=== PATIENT | female | born 1930 | race Caucasian/White ===

== ENCOUNTER 2017-04-16 10:20 | Emergency (ER) | payer MEDICARE, OTHER ==
[~2017-04-16] VITALS: Ht 160 cm; Wt 54.0 kg
[~2017-04-16 10:20] MED LIST: ACET500T3 PO; ALEV220T14 PO; ATEN100T PO; LISI-586 PO; SIMV40TA PO
[2017-04-16 10:43] VITALS: BP 136/62; PULSE 61; RESP 16; TEMP 97.6; O2SAT 98
[2017-04-16] MEDS ORDERED: DEXAMETHASONE SOD PHOS 4 MG/ML VIAL IM ONE (11:15)
[2017-04-16] MEDS ORDERED: HYDR-3516 PO (11:18)
--- NOTE | 2017-04-16 11:18 | PD ---
HPI Chief Complaint: Pain: Acute or Chronic Time Seen by Provider: 11:04 Travel History International Travel<30 days: No Contact w/Intl Traveler<30days: No Traveled to known affect area: No History of Present Illness HPI 86-year-old female with history of hypertension, hypercholesterolemia, back pain /lumbar radiculopathy with L4 laminectomy about 10 years ago, here for evaluation of right lower back pain radiating down her buttocks and posterior right leg. Symptoms have been going on for a week or so, worsening today, gradual onset. Patient reports symptoms are severe, constant, worse with movements and ambulation. She denies trauma. No motor deficits or weakness. No urinary or bowel incontinence or retention. No fevers. She is requesting an injection as she has had them in the past. PFS Past Medical History High Cholesterol: Yes Diminished Hearing: No Hypertension: Yes Immunizations Current: Yes Tetanus Vaccination: < 5 Years Influenza Vaccination: Yes ?: Not Menopausal: Yes : 4 Para: 4 Past Surgical History Abdominal Surgery: Yes (rectal surgery) Other Surgery: Yes (nerve stimulator lower back, L4 fusion) Social History Alcohol Use: Yes (5 nights a week, one drink ) Tobacco Use: No Substance Use: No Allergies-Medications (Allergen,Severity, Reaction): Coded Allergies: Sulfa (Sulfonamide Antibiotics) (Unverified Allergy, Intermediate, hives, 04/16/17) Reported Meds & Prescriptions Reported Meds & Active Scripts Active Reported Atenolol 100 Mg Tab 100 Mg PO DAILY Review of Systems Except as stated in HPI: all other systems reviewed are Neg Physical Exam Narrative GENERAL: Well-developed, well-nourished, comfortable, no apparent distress. SKIN: Focused skin assessment warm/dry. No rash. HEAD: Atraumatic. Normocephalic. EYES: Pupils equal and round. No scleral icterus. No injection or drainage. ENT: Mucous membranes pink and moist. CARDIOVASCULAR: Regular rate and rhythm. Bilateral dorsalis pedis pulses are brisk and equal. RESPIRATORY: No accessory muscle use. MUSCULOSKELETAL: No midline vertebral step-off or tenderness. There is mild right SI joint tenderness. Normal range of motion in flexion and extension and normal muscle strength in bilateral lower extremities. NEUROLOGICAL: Awake and alert. No obvious cranial nerve deficits. Motor grossly within normal limits. Normal speech. Normal motor/sensory in bilateral lower extremities. Great toe extension present bilaterally. No saddle anesthesia. PSYCHIATRIC: Appropriate mood and affect; insight and judgment normal. Data Data Last Documented VS Vital Signs Date Time Temp Pulse Resp B/P (MAP) Pulse Ox O2 Delivery O2 Flow Rate FiO2 04/16/17 10:43 97.6 61 16 136/62 (86) 98 Orders Orders Dexamethasone Inj (Decadron Inj) (04/16/17 11:15) MDM Medical Decision Making Medical Screen Exam Complete: Yes Emergency Medical Condition: Yes Differential Diagnosis Sciatica, conus medullaris syndrome/cauda equina syndrome unlikely Narrative Course Vital signs reviewed and are within normal limits. This is an 86-year-old female with history of lumbar radiculopathy is presenting with right lower back pain radiating down her posterior right leg. Her signs and symptoms are consistent with sciatica. There are no motor deficits or weakness. No anesthesia or saddle anesthesia. She denies urinary or bowel incontinence or retention. No signs or symptoms to suggest cord compression. I explained to her that we do not do direct injections or epidural injections in the emergency department. I will give her an IM injection of Decadron. She states she has one hydrocodone left over at home from a prescription filled about a year ago. I will give her a prescription for hydrocodone as well. She was advised to follow-up with her primary care physician or with the physician who provided direct injections this week. She was informed on when to return to the emergency department. She verbalizes understanding and agreement with plan. Diagnosis Primary Impression: Low back pain Qualified Codes: M54.41 - Lumbago with sciatica, right side Referrals: Primary Care Physician 3 days Additional Instructions: Follow-up with your primary care physician this week. Do not drink alcohol, drive, or operate heavy machinery while taking hydrocodone. Return to the emergency department for worsening symptoms or any other concerns. Scripts Hydrocodone-Acetaminophen (Hydrocodone-Acetaminophen) 5-325 mg Tab 1 TAB PO Q6H Y for PAIN, #12 TAB 0 Refills Prov: Unruly Sanchez MD 04/16/17 Disposition: 01 DISCHARGE HOME Condition: Stable Unruly Sanchez MD Apr 16, 2017 11:18
== END 2017-04-16 11:39 | disposition home or self-care (01) ==
LOC: PHED 10:20 → PHEFT 11:39
DX: M54.41 Lumbago with sciatica, right side (principal); E78.00 Pure hypercholesterolemia, unspecified; I10 Essential (primary) hypertension; Z79.899 Other long term (current) drug therapy; Z88.2 Allergy status to sulfonamides
CPT/HCPCS: 96372; 99284; J1100

== ENCOUNTER 2017-04-21 13:25 | Emergency (ER) | payer MEDICARE, OTHER ==
[~2017-04-21] VITALS: Ht 154.9 cm; Wt 54.2 kg
[~2017-04-21 13:25] MED LIST changes: -ACET500T3 PO; -ALEV220T14 PO; +HYDR-3516 PO; -LISI-586 PO; -SIMV40TA PO
[2017-04-21 13:27] VITALS: BP 173/76; PULSE 58; RESP 18; TEMP 97.4; O2SAT 99
--- NOTE | 2017-04-21 14:02 | PD ---
HPI Chief Complaint: Musculoskeletal Complaint Time Seen by Provider: 13:55 Travel History International Travel<30 days: No Contact w/Intl Traveler<30days: No Traveled to known affect area: No History of Present Illness HPI 86-year-old female with history of low back pain and sciatica here with continued low back pain. She was seen on 04/16/17 and given a shot of Decadron discharged home with [place]. She reports his medications improved symptoms but she ran out of pills. Due to the holiday she was unable to schedule a follow- up appointment with pain management. She was previously seen by Dr. Tovar in July 2016 and received a spinal injection which resolved her sciatic pain. She plans to follow-up with him as possible. She denies fever, chills, incontinence, saddle anesthesia, paresthesia or weakness in extremities. She reports this pain is similar to her previous sciatic pain. Of note the woman resides in [place] where her primary care doctor is and only lyon here in [place]. Making follow-up difficult for her. PFSH Past Medical History High Cholesterol: Yes Diminished Hearing: No Hypertension: Yes Immunizations Current: Yes Tetanus Vaccination: > 5 Years Influenza Vaccination: Yes ?: Not Menopausal: Yes : 4 Para: 4 Past Surgical History Abdominal Surgery: Yes (rectal surgery) Other Surgery: Yes (nerve stimulator lower back, L4 fusion) Social History Alcohol Use: Yes (5 nights a week, one drink ) Tobacco Use: No Substance Use: No Allergies-Medications (Allergen,Severity, Reaction): Coded Allergies: Sulfa (Sulfonamide Antibiotics) (Unverified Allergy, Intermediate, hives, 04/21/17) Reported Meds & Prescriptions Reported Meds & Active Scripts Active Hydrocodone-Acetaminophen 5-325 mg Tab 1 Tab PO Q6H PRN Reported Atenolol 100 Mg Tab 100 Mg PO DAILY Review of Systems Except as stated in HPI: all other systems reviewed are Neg General / Constitutional: No: Fever Eyes: No: Visual changes HENT: No: Headaches Cardiovascular: No: Chest Pain or Discomfort Respiratory: No: Shortness of Breath Gastrointestinal: No: Abdominal Pain Genitourinary: No: Dysuria Physical Exam Narrative GENERAL: Alert, well-developed and well-appearing 86-year-old female SKIN: Warm and dry. HEAD: Normocephalic. EYES: No injection or drainage. NECK: Supple, trachea midline. CARDIOVASCULAR: Regular rate and rhythm without murmurs, gallops, or rubs. RESPIRATORY: Breath sounds equal bilaterally. No accessory muscle use. GASTROINTESTINAL: Abdomen soft, non-tender, nondistended. MUSCULOSKELETAL: No cyanosis, or edema. BACK: Tenderness to the right buttocks over the sacroiliac joint. Without obvious deformity. No CVA tenderness. NEUROLOGICAL: Awake and alert. Normal strength and sensation in the lower extremities. Patient is able to dorsiflex and plantar bilaterally. Data Data Last Documented VS Vital Signs Date Time Temp Pulse Resp B/P (MAP) Pulse Ox O2 Delivery O2 Flow Rate FiO2 04/21/17 13:27 97.4 58 18 173/76 (108) 99 MDM Medical Decision Making Medical Screen Exam Complete: Yes Emergency Medical Condition: Yes Differential Diagnosis Sciatica, acute on chronic low back pain, lumbago Narrative Course 86-year-old female with a history of sciatica. She has no signs of cord compression. She has a normal neurologic exam. She was unable to follow up with pain management due to the holiday. Her sciatic pain has been managed in the past with spinal injections. She will be given another prescription for [place] and instructed to make an appointment with Dr. Tovar. Diagnosis Primary Impression: Sciatica Qualified Codes: M54.31 - Sciatica, right side Referrals: Boaz Tovar MD Additional Instructions: may take [id number] ibuprofen or Aleve. Make an appointment for follow-up with Dr. Tovar. Disposition: 01 DISCHARGE HOME Condition: Stable Traci Aguayo Adrian CARBALLO Apr 21, 2017 14:02
[2017-04-21] MEDS ORDERED: HYDR-3516 PO (14:03)
[2017-04-21] MEDS ORDERED: KETOROLAC TROMETHAMINE 60 MG/2 ML (IM) VIAL IM ONE (14:15)
== END 2017-04-21 14:20 | disposition home or self-care (01) ==
LOC: PHEFT 13:25
DX: M54.31 Sciatica, right side (principal); E78.00 Pure hypercholesterolemia, unspecified; I10 Essential (primary) hypertension
CPT/HCPCS: 96372; 99284; J1885

== ENCOUNTER 2017-07-20 07:48 | Emergency (ER) | payer MEDICARE, OTHER ==
[~2017-07-20] VITALS: Ht 154.9 cm; Wt 53.4 kg
[~2017-07-20 07:48] MED LIST changes: +ALEV220T14 PO; -HYDR-3516 PO; +LISI10TA PO; +TRAM50TA PO
[2017-07-20 07:52] VITALS: BP 159/75; PULSE 71; RESP 16; TEMP 98.4; O2SAT 95
[2017-07-20] MEDS ORDERED: HYDR-3516 PO (08:04)
[2017-07-20] MEDS ORDERED: ZOCO40TA PO (08:04)
[2017-07-20] MEDS ORDERED: ONDANSETRON HCL 4 MG/2 ML VIAL IM ONE (08:30)
[2017-07-20] MEDS ORDERED: HYDROmorphone HCL PF 2 MG/ML VIAL IM ONE (08:30)
--- NOTE | 2017-07-20 08:30 | PD ---
HPI Chief Complaint: Musculoskeletal Complaint Time Seen by Provider: 08:05 Travel History International Travel<30 days: No Contact w/Intl Traveler<30days: No Traveled to known affect area: No History of Present Illness HPI This 86-year-old female is complaining of back pain. She is having pain from her back going down to her right hip and down her right leg. She has had this pain for some time. She gets periodic epidural injections. She had one done a week ago but says it did not seem to provide any relief. She has a history of a lumbar fusion in 2005. She has prescription for Lortab 5/325 and she has been taking 1-2 per day. She is also been taking some Aleve. The pain is aggravated by movement. She has trouble bearing weight due to the pain PFSH Past Medical History High Cholesterol: Yes Diminished Hearing: No Hypertension: Yes Immunizations Current: Yes ?: Not Menopausal: Yes : 4 Para: 4 Past Surgical History Abdominal Surgery: Yes (rectal surgery) Other Surgery: Yes (nerve stimulator lower back, L4 fusion) Social History Alcohol Use: Yes (5 nights a week, one drink ) Tobacco Use: No Substance Use: No Allergies-Medications (Allergen,Severity, Reaction): Coded Allergies: Sulfa (Sulfonamide Antibiotics) (Unverified Allergy, Intermediate, hives, 07/20/17) Reported Meds & Prescriptions Reported Meds & Active Scripts Active [place] (Hydrocodone-Acetaminophen) 5 Mg-325 Mg Tab 1-2 Tab PO Q4H PRN Reported Hydrocodone-Acetaminophen 5-325 mg Tab 1 Tab PO Q4H PRN Zocor (Simvastatin) 40 Mg Tab 40 Mg PO DAILY Lisinopril-Hctz 10-12.5 Mg Tab 1 Tab PO DAILY Atenolol 100 Mg Tab 100 Mg PO DAILY Review of Systems General / Constitutional: No: Fever, Chills Eyes: No: Diploplia HENT: No: Headaches Cardiovascular: No: Chest Pain or Discomfort, Palpitations Respiratory: No: Cough, Shortness of Breath Gastrointestinal: No: Vomiting, Diarrhea Genitourinary: No: Frequency Musculoskeletal: Positive: Pain Hematologic/Lymphatic: No: Easy Bruising Physical Exam Narrative GENERAL: Well-developed female SKIN: Focused skin assessment warm/dry. HEAD: Atraumatic. Normocephalic. EYES: Pupils equal and round. No scleral icterus. No injection or drainage. ENT: No nasal bleeding or discharge. Mucous membranes pink and moist. NECK: Trachea midline. No JVD. MUSCULOSKELETAL: No obvious deformities. No clubbing. No cyanosis. No edema. Tenderness in the right sacroiliac area. Straight leg raising is painful. Sensation of the leg appears intact. She has good strength in plantar dorsiflexion of the foot. Extension of the knee causes pain NEUROLOGICAL: Awake and alert. No obvious cranial nerve deficits. Motor grossly within normal limits. Normal speech. PSYCHIATRIC: Appropriate mood and affect; insight and judgment normal. Data Data Last Documented VS Vital Signs Date Time Temp Pulse Resp B/P (MAP) Pulse Ox O2 Delivery O2 Flow Rate FiO2 07/20/17 07:52 98.4 71 16 159/75 (103) 95 Orders Orders Hydromorphone Pf Inj (Dilaudid Pf Inj) (07/20/17 08:30) Ondansetron Inj (Zofran Inj) (07/20/17 08:30) Ed Discharge Order (07/20/17 09:08) MDM Medical Decision Making Medical Screen Exam Complete: Yes Emergency Medical Condition: Yes Medical Record Reviewed: Yes Differential Diagnosis Differential includes lumbar radiculopathy HNP, exacerbation of chronic pain Narrative Course I was able to contact Dr. Tovar who recommends the patient call for further follow-up. I will provide some [place] Diagnosis Primary Impression: Lumbar radiculopathy Referrals: Boaz Tovar MD Scripts Hydrocodone-Acetaminophen ([place]) 5 Mg-325 Mg Tab 1-2 TAB PO Q4H Y for PAIN, #20 TAB 0 Refills Prov: Jeferson Zuniga MD 07/20/17 Disposition: 01 DISCHARGE HOME Condition: Stable Jeferson uZniga MD Jul 20, 2017 08:30
[2017-07-20] MEDS ORDERED: NORC5TAB PO (08:37)
== END 2017-07-20 09:29 | disposition home or self-care (01) ==
LOC: PHED 07:48
DX: M54.16 Radiculopathy, lumbar region (principal); E78.00 Pure hypercholesterolemia, unspecified; I10 Essential (primary) hypertension
CPT/HCPCS: 96372; 99283; J1170; J2405

== ENCOUNTER 2017-07-21 08:47 | Emergency (ER) | payer MEDICARE, OTHER ==
[~2017-07-21] VITALS: Ht 154.9 cm; Wt 78.0 kg
[~2017-07-21 08:47] MED LIST changes: +HYDR-3516 PO; +NORC5TAB PO; +ZOCO40TA PO
[2017-07-21 08:55] VITALS: BP 178/78; PULSE 71; RESP 16; TEMP 99; O2SAT 97
[2017-07-21] MEDS ORDERED: ONDANSETRON HCL 4 MG/2 ML VIAL IM ONE (12:30)
[2017-07-21] MEDS ORDERED: HYDROmorphone HCL PF 1 MG/ML VIAL IM ONE (12:30)
[2017-07-21] MEDS ORDERED: HYDROmorphone HCL PF 2 MG/ML VIAL IM ONE (12:45)
--- NOTE | 2017-07-21 12:55 | PD ---
HPI Chief Complaint: Musculoskeletal Complaint Time Seen by Provider: 12:07 Travel History International Travel<30 days: No Contact w/Intl Traveler<30days: No Traveled to known affect area: No History of Present Illness HPI This patient complains of right low back pain radiating to her right buttock and down the back of her leg. She has had sciatica for many many years. She gets epidural steroid injections from her pain management physician. She had one recently but it did not help. She was seen here yesterday in the ER and received a Dilaudid injection which gave her temporary relief. She came back today because she is still hurting. She has an appointment on Monday with Dr. Tovar. No acute injury. No neurologic change. Symptom severity is moderate. Worse with movement. PFSH Past Medical History High Cholesterol: Yes Diminished Hearing: No Hypertension: Yes Immunizations Current: Yes Influenza Vaccination: Yes ?: Not Menopausal: Yes : 4 Para: 4 Past Surgical History Abdominal Surgery: Yes (rectal surgery) Hysterectomy: Yes Other Surgery: Yes (nerve stimulator lower back, L4 fusion) Social History Alcohol Use: Yes (5 nights a week, one drink ) Tobacco Use: No Substance Use: No Allergies-Medications (Allergen,Severity, Reaction): Coded Allergies: Sulfa (Sulfonamide Antibiotics) (Unverified Allergy, Intermediate, hives, 07/20/17) Reported Meds & Prescriptions Reported Meds & Active Scripts Active [place] (Hydrocodone-Acetaminophen) 5 Mg-325 Mg Tab 1-2 Tab PO Q4H PRN Reported Zocor (Simvastatin) 40 Mg Tab 40 Mg PO DAILY Lisinopril-Hctz 10-12.5 Mg Tab 1 Tab PO DAILY Atenolol 100 Mg Tab 100 Mg PO DAILY Review of Systems General / Constitutional: No: Fever Eyes: No: Visual changes HENT: No: Headaches Cardiovascular: No: Chest Pain or Discomfort Respiratory: No: Shortness of Breath Gastrointestinal: No: Abdominal Pain Genitourinary: No: Dysuria Musculoskeletal: Positive: Arthralgias, Limited ROM, Pain Skin: No Rash Neurologic: No: Weakness Psychiatric: No: Depression Endocrine: No: Polydipsia Hematologic/Lymphatic: No: Easy Bruising Physical Exam Narrative GENERAL: Well-nourished, well-developed patient with right low back pain . SKIN: Focused skin assessment reveals no rash and nodules. Skin is Warm and dry. HEAD: Atraumatic. Normocephalic. EYES: Pupils equal and round. No scleral icterus. No injection or drainage. ENT: No nasal bleeding or discharge. Mucous membranes pink and moist. NECK: Trachea midline. No JVD. CARDIOVASCULAR: Regular rate and rhythm. No murmur appreciated. RESPIRATORY: No accessory muscle use. Clear to auscultation. Breath sounds equal bilaterally. GASTROINTESTINAL: Abdomen soft, non-tender, nondistended. Hepatic and splenic margins not palpable. MUSCULOSKELETAL: No obvious deformities. No clubbing. No cyanosis. No edema. Back exam reveals no midline tenderness. Positive straight leg raise NEUROLOGICAL: Awake and alert. No obvious cranial nerve deficits. Motor grossly within normal limits. Normal speech. PSYCHIATRIC: Appropriate mood and affect; insight and judgment normal. Data Data Last Documented VS Vital Signs Date Time Temp Pulse Resp B/P (MAP) Pulse Ox O2 Delivery O2 Flow Rate FiO2 07/21/17 08:55 99.0 71 16 178/78 (111) 97 Orders Orders Ondansetron Inj (Zofran Inj) (07/21/17 12:30) Hydromorphone Pf Inj (Dilaudid Pf Inj) (07/21/17 12:30) Hydromorphone Pf Inj (Dilaudid Pf Inj) (07/21/17 12:45) [facility] Medical Decision Making Medical Screen Exam Complete: Yes Emergency Medical Condition: Yes Medical Record Reviewed: Yes Differential Diagnosis Sciatica, compression fracture, disc herniation, lumbar strain Narrative Course I have reviewed the patient's electronic medical record. I reviewed her visit from yester morning I gave her injection of Dilaudid and Zofran for symptom relief Patient got some relief with that She has an appointment with her pain management physician Monday Diagnosis Primary Impression: Chronic sciatica of right side Patient Instructions: General Instructions Departure Forms: Tests/Procedures Additional Instructions: The patient was advised to follow up with their physician and return if they worsen. Med/Other Pt SpecificInfo: Other Disposition: 01 DISCHARGE HOME Condition: Stable Hudson Hopson MD Jul 21, 2017 12:55
== END 2017-07-21 13:55 | disposition home or self-care (01) ==
LOC: PHED 08:47
DX: M54.31 Sciatica, right side (principal); E78.00 Pure hypercholesterolemia, unspecified; I10 Essential (primary) hypertension; Z79.899 Other long term (current) drug therapy; Z88.2 Allergy status to sulfonamides
CPT/HCPCS: 96372; 99283; J1170; J2405

== ENCOUNTER 2017-07-22 04:53 | Observation (INO) | payer MEDICARE, OTHER ==
[2017-07-22] VITALS (9 sets, daily range): BP systolic 118–190; BP diastolic 56–94; PULSE 65–91; RESP 16–18; TEMP 97–98.6; O2SAT 95–98
[~2017-07-22] VITALS: Ht 154.9 cm; Wt 51.3 kg
[~2017-07-22 04:53] MED LIST changes: -ALEV220T14 PO; -HYDR-3516 PO; -TRAM50TA PO
[2017-07-22] MEDS ORDERED: ONDANSETRON HCL 4 MG/2 ML VIAL IV PUSH ONE (05:15)
[2017-07-22] MEDS ORDERED: HYDROmorphone HCL PF 1 MG/ML VIAL IV PUSH ONE (05:15)
[2017-07-22] MEDS ORDERED: KETOROLAC TROMETHAMINE 30 MG/ML (IVP) VIAL IV PUSH ONE (05:15)
[2017-07-22 05:30] LABS: AUTOMATED NEUTROPHIL # 5.3 TH/MM3 (1.8-7.7); BASOPHIL # 0.1 TH/MM3 (0-0.2); BASOPHIL % 0.7 % (0.0-2.0); EOSINOPHIL % 0.6 % (0.0-4.0); HEMATOCRIT 36.5 % (35.0-46.0); HEMOGLOBIN 11.7 GM/DL (11.6-15.3); LYMPH % 13.8 % (9.0-44.0); MEAN CELL VOLUME 90.3 FL (80.0-100.0); MEAN CORPUSCULAR HEMOGLOBIN 28.9 PG (27.0-34.0); MEAN PLATELET VOLUME 7.4 FL (7.0-11.0); MONO % 9.3 % (0.0-8.0); MONOCYTE # 0.7 TH/MM3 (0-0.9); NEUT % 75.6 % (16.0-70.0); PLATELET COUNT 195 TH/MM3 (150-450); RED BLOOD COUNT 4.04 MIL/MM3 (4.00-5.30); RED CELL DISTRIBUTION WIDTH 14.5 % (11.6-17.2); WHITE BLOOD COUNT 7.2 TH/MM3 (4.0-11.0)
[2017-07-22] MEDS ORDERED: HYDROmorphone HCL PF 2 MG/ML VIAL IV PUSH ONE (05:30)
[2017-07-22 05:37] LABS: CHLORIDE 103 MEQ/L (98-107); SODIUM (NA) 137 MEQ/L (136-145)
[2017-07-22 05:40] LABS: CALCIUM 8.5 MG/DL (8.5-10.1)
[2017-07-22 05:41] LABS: ALBUMIN 3.5 GM/DL (3.4-5.0); BICARBONATE 26.7 MEQ/L (21.0-32.0); BLOOD UREA NITROGEN 18 MG/DL (7-18); GLUCOSE,RANDOM 109 MG/DL (74-106)
[2017-07-22 05:44] LABS: ALT (GPT) 17 U/L (10-53); AST (GOT) 14 U/L (15-37); CREATININE 0.63 MG/DL (0.50-1.00); GLOMERULAR FILTRATION RATE 90 ML/MIN (>89)
[2017-07-22 05:46] LABS: TOTAL BILIRUBIN ADULT 0.7 MG/DL (0.2-1.0); TOTAL PROTEIN 6.6 GM/DL (6.4-8.2)
[2017-07-22 05:47] LABS: ALKALINE PHOSPHATASE 44 U/L (45-117)
--- NOTE | 2017-07-22 05:59 | PD ---
HPI Chief Complaint: Pain: Acute or Chronic Time Seen by Provider: 05:08 Travel History International Travel<30 days: No Contact w/Intl Traveler<30days: No Traveled to known affect area: No History of Present Illness HPI Is an 86-year-old woman who presents to the emergency department with persistent unrelenting back and sciatica pain. She is a history of chronic problems. She had a fusion done in 2006 over L4 and adjacent level. She has had intermittent trouble since then. She received epidural shots in the past. She typically has mild to moderate problems that are self-limited. She states been having worsening problems over the past couple weeks that are much more severe than she has had in the past. Over the past 48-72 hours symptoms are gotten excruciating. She has been in the ER twice already received IM injections of Dilaudid. She states they work for short period time she gets home and is incapacitated due to pain and is not able to walk. She has an appointment with Dr. Tovar coming up in several days, but states that the pain is excruciating and she is not able to move around at all at home. She does presents back to the emergency department via EMS for her third visit. History Past Medical History Narrative Medical Hypertension History of L4 fusion Hyperlipidemia Tetanus Vaccination: < 5 Years Influenza Vaccination: Yes Menopausal: Yes : 4 Para: 4 Social History Alcohol Use: Yes (5 nights a week, one drink ) Tobacco Use: No (QUIT AGE 47: SMOKED SOCIALLY ONLY) Allergies-Medications (Allergen,Severity, Reaction): Coded Allergies: Sulfa (Sulfonamide Antibiotics) (Unverified Allergy, Intermediate, hives, 07/22/17) Reported Meds & Prescriptions Reported Meds & Active Scripts Active [place] (Hydrocodone-Acetaminophen) 5 Mg-325 Mg Tab 1-2 Tab PO Q4H PRN Reported Zocor (Simvastatin) 40 Mg Tab 40 Mg PO HS Lisinopril-Hctz 10-12.5 Mg Tab 1 Tab PO DAILY Atenolol 100 Mg Tab 100 Mg PO HS Review of Systems Except as stated in HPI: all other systems reviewed are Neg Physical Exam Narrative GENERAL: 86-year-old woman, tense, uncomfortable appearing. SKIN: Focused skin assessment warm/dry. HEAD: Atraumatic. Normocephalic. EYES: Pupils equal and round. No scleral icterus. No injection or drainage. ENT: No nasal bleeding or discharge. Mucous membranes pink and moist. NECK: Trachea midline. No JVD. CARDIOVASCULAR: Regular rate and rhythm. No murmur appreciated. RESPIRATORY: No accessory muscle use. Clear to auscultation. Breath sounds equal bilaterally. GASTROINTESTINAL: Abdomen soft, non-tender, nondistended. Hepatic and splenic margins not palpable. MUSCULOSKELETAL: No obvious deformities. No edema. No edema. NEURO: Strength full and equal in the lower extremities. Pain with movement in certain dimensions in the right lower extremity but no obvious weakness. Sensations intact to light touch and equal bilaterally. PSYCHIATRIC: Appropriate mood and affect; insight and judgment normal. Data Data Last Documented VS Vital Signs Date Time Temp Pulse Resp B/P (MAP) Pulse Ox O2 Delivery O2 Flow Rate FiO2 07/22/17 05:41 Nasal Cannula 2.00 07/22/17 05:30 74 161/68 (99) 97 07/22/17 04:53 98.6 18 Orders Orders Complete Blood Count With Diff (07/22/17 05:08) Comprehensive Metabolic Panel (07/22/17 05:08) Iv Access Insert/Monitor (07/22/17 05:08) Hydromorphone Pf Inj (Dilaudid Pf Inj) (07/22/17 05:15) Ketorolac Inj (Toradol Inj) (07/22/17 05:15) Ondansetron Inj (Zofran Inj) (07/22/17 05:15) Hydromorphone Pf Inj (Dilaudid Pf Inj) (07/22/17 05:30) Place In Observation (07/22/17 ) Vital Signs (Adult) Q4H (07/22/17 06:05) Activity Oob With Assistance (07/22/17 06:05) Diet Regular Basic (07/22/17 Breakfast) Sodium Chloride 0.9% Flush (Ns Flush) (07/22/17 06:15) Sodium Chloride 0.9% Flush (Ns Flush) (07/22/17 09:00) Ondansetron Inj (Zofran Inj) (07/22/17 06:15) Comprehensive Metabolic Panel (07/23/17 06:00) Complete Blood Count With Diff (07/23/17 06:00) Pt Request For Service (07/22/17 06:05) Case Management Consult (07/22/17 06:05) Scd Bilateral/Knee High ANTHONY.BID (07/22/17 06:05) [place] Bilateral/Knee High ANTHONY.QSHIFT (07/22/17 06:08) Acetamin-Hydrocod 325-5 Mg ([place] 5-325 (07/22/17 06:15) Morphine Inj (Morphine Inj) (07/22/17 06:15) Docusate Sodium-Senna (Courtney-Colace) (07/22/17 09:00) Magnesium Hydroxide Liq (Milk Of Magnesi (07/22/17 06:15) Sennosides (Senokot) (07/22/17 06:15) Bisacodyl Supp (Dulcolax Supp) (07/22/17 06:15) Lactulose Liq (Lactulose Liq) (07/22/17 06:15) Methylprednisolone So Succ Inj (Solumedr (07/22/17 06:15) Diazepam (Valium) (07/22/17 06:15) Diazepam (Valium) (07/22/17 10:00) Atenolol (Tenormin) (07/22/17 21:00) (Nf) Simvastatin (Zocor) (07/22/17 21:00) Admit Order (Ed Use Only) (07/22/17 ) Labs Laboratory Tests Test 07/22/17 05:20 White Blood Count 7.2 TH/MM3 Red Blood Count 4.04 MIL/MM3 Hemoglobin 11.7 GM/DL Hematocrit 36.5 % Mean Corpuscular Volume 90.3 FL Mean Corpuscular Hemoglobin 28.9 PG Mean Corpuscular Hemoglobin Concent 32.0 % Red Cell Distribution Width 14.5 % Platelet Count 195 TH/MM3 Mean Platelet Volume 7.4 FL Neutrophils (%) (Auto) 75.6 % Lymphocytes (%) (Auto) 13.8 % Monocytes (%) (Auto) 9.3 % Eosinophils (%) (Auto) 0.6 % Basophils (%) (Auto) 0.7 % Neutrophils # (Auto) 5.3 TH/MM3 Lymphocytes # (Auto) 1.0 TH/MM3 Monocytes # (Auto) 0.7 TH/MM3 Eosinophils # (Auto) 0.0 TH/MM3 Basophils # (Auto) 0.1 TH/MM3 CBC Comment DIFF FINAL Differential Comment Blood Urea Nitrogen 18 MG/DL Creatinine 0.63 MG/DL Random Glucose 109 MG/DL Total Protein 6.6 GM/DL Albumin 3.5 GM/DL Calcium Level 8.5 MG/DL Alkaline Phosphatase 44 U/L Aspartate Amino Transf (AST/SGOT) 14 U/L Alanine Aminotransferase (ALT/SGPT) 17 U/L Total Bilirubin 0.7 MG/DL Sodium Level 137 MEQ/L Potassium Level 3.7 MEQ/L Chloride Level 103 MEQ/L Carbon Dioxide Level 26.7 MEQ/L Anion Gap 7 MEQ/L Estimat Glomerular Filtration Rate 90 ML/MIN [facility] Medical Decision Making Medical Screen Exam Complete: Yes Emergency Medical Condition: Yes Medical Record Reviewed: Yes Interpretation(s) Reviewed CT scan from June 20 from [facility]: Degenerative anterolisthesis at L3-4 with advanced degenerative disc disease, moderate right foraminal encroachment and mild central spinal stenosis. Status post lumbar fusion at L4-5 with residual grade 2 spondylolisthesis. Degenerative disc disease at L2-3, and L5-S1. No acute bony abnormality. LABS: CBC is unremarkable. CMP is unremarkable. Differential Diagnosis Radiculopathy, herniated disc, contusion, other Narrative Course Medical decision making 86-year-old woman presents emerged prior worsening radicular low back pain. States she cannot have an MRI because of hardware that she has in the back. Reviewed the CT scan from about a month ago does show some moderate right foraminal encroachment. There is no neurologic symptoms, numbness tingling or weakness. Pain is excruciating and limiting her mobility. This is her third ED visit for the same, and she comes in today by EMS complaining of worsening pain and inability to ambulate. Plan, would recommend admission for intractable back pain. There is to see why she is unable to obtain MRI with her hardware. This was placed in late 1999's. Reassess. Diagnosis Primary Impression: Intractable back pain Admitting Information Admitting Physician Requests: Alejandro Barros MD Jul 22, 2017 05:59
[2017-07-22] MEDS ORDERED: SODIUM CHLORIDE 0.9% FLUSH 10 ML FLUSH IV FLUSH PRN (06:15)
[2017-07-22] MEDS ORDERED: ACETAMINOPHEN/HYDROcodone 325 MG/5 MG TAB PO PRN (06:15)
[2017-07-22] MEDS ORDERED: MAGNESIUM HYDROXIDE SUSP 30 ML CUP PO PRN (06:15)
[2017-07-22] MEDS ORDERED: DIAZEPAM 5 MG TAB PO ONE (06:15)
[2017-07-22] MEDS ORDERED: BISACODYL 10 MG SUPP RECTAL PRN (06:15)
[2017-07-22] MEDS ORDERED: LACTULOSE SYRUP 20 GM/30 ML CUP PO PRN (06:15)
[2017-07-22] MEDS ORDERED: ONDANSETRON HCL 4 MG/2 ML VIAL IVP PRN (06:15)
[2017-07-22] MEDS ORDERED: MORPHINE SULFATE 2 MG/ML INJ IV PUSH PRN ×2 (06:15→13:30)
[2017-07-22] MEDS ORDERED: SENNOSIDES 8.6 MG TAB PO PRN (06:15)
[2017-07-22] MEDS ORDERED: methylPREDNISolone SOD SUCC 125 MG/2 ML VIAL IV PUSH ONE (06:15)
[2017-07-22] MEDS: SODIUM CHLORIDE 0.9% FLUSH 10 ML FLUSH IV FLUSH SCH ×2 (09:00→20:26)
[2017-07-22] MEDS: DOCUSATE SODIUM 50 MG/SENNA 8.6 MG TAB PO SCH ×2 (09:00→20:27)
[2017-07-22] MEDS ORDERED: DIAZEPAM 5 MG TAB PO PRN (10:00)
[2017-07-22] MEDS: LIDOCAINE HCL 5% PATCH T-DERMAL SCH (10:00)
[2017-07-22] MEDS ORDERED: methylPREDNISolone ACETATE 40 MG/ML VIAL I-ARTICULR ONE (10:07)
[2017-07-22] MEDS ORDERED: TRIAMCINOLONE ACETONIDE 40 MG/ML VIAL I-ARTICULR ONE (10:07)
[2017-07-22] MEDS ORDERED: BUPIVACAINE HCL PF 0.75% 30 ML VIAL ONE (10:07)
[2017-07-22] MEDS ORDERED: BUPIVACAINE HCL PF 0.5% 30 ML VIAL ONE (10:07)
--- NOTE | 2017-07-22 13:36 | HHI.HP ---
HPI Service [facility] Hospitalists Primary Care Physician Non-Staff Admission Diagnosis Intractable back pain Diagnoses: (1) Acute exacerbation of chronic low back pain Diagnosis: Principal Chief Complaint: Difficulty ambulating, back pain Travel History International Travel<30 Days: No Contact w/Intl Traveler <30 Da: No Traveled to Known Affected Are: No History of Present Illness 86-year-old female with known history of hypertension, chronic back pain who originally lives in [place] and is down here in [place] until beginning of August. The patient has presented to the hospital multiple times the last few days, for low back pain and difficulty in ambulating. The patient has chronic back pain usually is treated by her pain doctors in [place]. She indicates that she usually gets injections in her back approximately every 3-4 months. Whenever she gets his injections usually feels the medication flowing down her leg and stopping her pain almost instantaneously. The patient indicates that she started developing pain while she is here in [place] and she went saw Dr. Tovar and had epidural steroid injections performed on 07/13/17. During that injection she did not feel the pain relief that she usually does when she is in [place]. The pain did not have any improvement. She states that the pain is coming from her posterior right hip and radiating to the anterior thigh and anterior narayanan down to mid narayanan. The patient indicates that she was called by Dr. Tovar's office and was told that she needed to come and see him in the office on July 24, 2017. Patient does have previous history of L4 fusion in 2006. She has been to the ER 3 times in the last 3 days and given multiple treatments with pain medication to include Toradol, Dilaudid, Valium, morphine, Solu-Medrol. Unfortunately the treatments has not been successful because the patient came to the emergency department on 07/20, 07/21, and 07/22, because her pain was only relieved for short period time and she is having difficulty ambulating. Because the patient return to the ER 3 days in a row as recommended by the ER physician that the patient be observed in the hospital for further recommendations and management. Unfortunately, there are no pain management physicians on staff at [facility]. We will need to try to contact patient's pain management physician for recommendations. Review of Systems Musculoskeletal: COMPLAINS OF: Back pain Except as stated in HPI: all other systems reviewed are Neg Past Family Social History Past Medical History Hypertension Chronic back pain Past Surgical History Hysterectomy Cataract surgery L4 spinal fusion 2005 Reported Medications Reported Meds & Active Scripts Active [place] (Hydrocodone-Acetaminophen) 5 Mg-325 Mg Tab 1-2 Tab PO Q4H PRN Reported Zocor (Simvastatin) 40 Mg Tab 40 Mg PO HS Lisinopril-Hctz 10-12.5 Mg Tab 1 Tab PO DAILY Atenolol 100 Mg Tab 100 Mg PO HS Allergies: Coded Allergies: Sulfa (Sulfonamide Antibiotics) (Unverified Allergy, Intermediate, hives, 07/22/17) Family History Family history was reviewed and is significant for mother with Alzheimer's, father from myocardial infarction Social History Patient quit smoking over 30 years ago. Prior to that she was a social smoker that she only smoked when she drank alcohol. Patient does drink 1 alcoholic beverage daily now. Denies any illicit drug Physical Exam Vital Signs Vital Signs Date Time Temp Pulse Resp B/P (MAP) Pulse Ox O2 Delivery O2 Flow Rate FiO2 07/22/17 12:44 18 07/22/17 12:00 97.8 80 18 144/79 (100) 95 07/22/17 08:00 97.0 65 18 147/67 (93) 98 07/22/17 07:45 07/22/17 07:32 98.6 91 16 156/94 (114) 97 07/22/17 07:01 97.9 68 16 161/59 (93) 98 Room Air 07/22/17 06:30 81 16 168/68 (101) 98 Room Air 07/22/17 05:41 Nasal Cannula 2.00 07/22/17 05:30 74 161/68 (99) 97 Room Air 07/22/17 04:53 98.6 85 18 190/84 (119) 98 Physical Exam GENERAL: Well-developed, well-nourished, in no acute distress. alert and orientated HEENT: Head is normocephalic without any lesions or masses noted. Facial features are symmetric. Eyes: Pupils equal round reactive to light. Extraocular muscles are intact. Conjunctivae were clear. Oropharyngeal: Pharynx without any erythema edema. Tongue is midline without deviation. Buccal mucosa is moist without any masses or lesions NECK: Supple without any masses. Trachea midline no deviation. No JVD, no bruits are appreciated CARDIAC: Regular rhythm, regular rate. S1/S2 are heard. No murmurs gallops or rubs. LUNGS: Clear to auscultation bilaterally. No wheeze, rhonchi or rales. No use of accessory muscles on inspiration or expiration. ABDOMEN: Soft, nontender. Nondistended. Bowel sounds heard in all 4 quadrants. No organomegaly or masses. Negative rebound, negative guarding EXTREMITIES: No edema, pulses are equal bilaterally. No cyanosis or clubbing NEUROLOGY: Mood and affect appear appropriate. Cranial nerves II through XII grossly intact. Muscle strength 5/5 in upper and lower extremities bilaterally. Deep tendon reflexes are 2+ in upper and lower extremities bilaterally. LUMBAR SPINE: No direct tenderness noted over the lumbar spine. Paraspinal musculature also without any rigidity. There is significant spasm and pain on palpation in the gluteus fallon muscle over the area of the right sacroiliac joint and iliac crest. Patient actually moving herself in bed to side of bed. Negative straight leg raise, negative Tunde Jocelyne. Patient is able to lift her own legs up in bed. Patient was able to stand up without any help. Piriformis stretch did help with relief of pain. Laboratory Laboratory Tests Test 07/22/17 05:20 White Blood Count 7.2 Red Blood Count 4.04 Hemoglobin 11.7 Hematocrit 36.5 Mean Corpuscular Volume 90.3 Mean Corpuscular Hemoglobin 28.9 Mean Corpuscular Hemoglobin Concent 32.0 Red Cell Distribution Width 14.5 Platelet Count 195 Mean Platelet Volume 7.4 Neutrophils (%) (Auto) 75.6 Lymphocytes (%) (Auto) 13.8 Monocytes (%) (Auto) 9.3 Eosinophils (%) (Auto) 0.6 Basophils (%) (Auto) 0.7 Neutrophils # (Auto) 5.3 Lymphocytes # (Auto) 1.0 Monocytes # (Auto) 0.7 Eosinophils # (Auto) 0.0 Basophils # (Auto) 0.1 CBC Comment DIFF FINAL Differential Comment Blood Urea Nitrogen 18 Creatinine 0.63 Random Glucose 109 Total Protein 6.6 Albumin 3.5 Calcium Level 8.5 Alkaline Phosphatase 44 Aspartate Amino Transf (AST/SGOT) 14 Alanine Aminotransferase (ALT/SGPT) 17 Total Bilirubin 0.7 Sodium Level 137 Potassium Level 3.7 Chloride Level 103 Carbon Dioxide Level 26.7 Anion Gap 7 Estimat Glomerular Filtration Rate 90 Result Diagram: 07/22/1751907/22/17519 Caprini VTE Risk Assessment Caprini VTE Risk Assessment: Mod/High Risk (score >= 2) Caprini Risk Assessment Model Point Value = 1 Point Value = 2 Point Value = 3 Point Value = 5 Age 41-60 Minor surgery BMI > 25 kg/m2 Swollen legs Varicose veins or History of unexplained or recurrent spontaneous Oral contraceptives or hormone replacement Sepsis (< 1 month) Serious lung disease, including pneumonia (< 1 month) Abnormal pulmonary function Acute myocardial infarction Congestive heart failure (< 1 month) History of inflammatory bowel disease Medical patient at bed rest Age 61-74 Arthroscopic surgery Major open surgery (> 45 min) Laparoscopic surgery (> 45 min) Malignancy Confined to bed (> 72 hours) Immobilizing plaster cast Central venous access Age >= 75 History of VTE Family history of VTE Factor V Leiden Prothrombin [id number] Lupus anticoagulant Anticardiolipin antibodies Elevated serum homocysteine Heparin-induced thrombocytopenia Other congenital or acquired thrombophilia Stroke (< 1 month) Elective arthroplasty Hip, pelvis, or leg fracture Acute spinal cord injury (< 1 month) Prophylaxis Regimen Total Risk Factor Score Risk Level Prophylaxis Regimen 0-1 Low Early ambulation 2 Moderate Order ONE of the following: *Sequential Compression Device (SCD) *Heparin 5000 units SQ BID 3-4 Higher Order ONE of the following medications: *Heparin 5000 units SQ TID *Enoxaparin/Lovenox 40 mg SQ daily (WT < 150 kg, CrCl > 30 mL/min) *Enoxaparin/Lovenox 30 mg SQ daily (WT < 150 kg, CrCl > 10-29 mL/min) *Enoxaparin/Lovenox 30 mg SQ BID (WT < 150 kg, CrCl > 30 mL/min) AND/OR *Sequential Compression Device (SCD) 5 or more Highest Order ONE of the following medications: *Heparin 5000 units SQ TID (Preferred with Epidurals) *Enoxaparin/Lovenox 40 mg SQ daily (WT < 150 kg, CrCl > 30 mL/min) *Enoxaparin/Lovenox 30 mg SQ daily (WT < 150 kg, CrCl > 10-29 mL/min) *Enoxaparin/Lovenox 30 mg SQ BID (WT < 150 kg, CrCl > 30 mL/min) AND *Sequential Compression Device (SCD) Assessment and Plan Assessment and Plan Acute exacerbation of chronic back pain Patient is followed by Dr. Tovar in outpatient setting, will try to contact him for recommendations Start ibuprofen 600 mg 3 times daily, start Flexeril 5 mg 3 times daily, apply Lidoderm patch [place] 5 for pain 6-10, morphine 2 mg IV for breakthrough pain Patient would benefit from trigger point injections at this time, unfortunately we do not have any pain management physicians on staff at [facility] Obtain physical therapy evaluation Contacted Dr. Tovar, we discussed different treatment options. He indicates that the patient is on the hospital he will see her first thing Monday morning possible do SI injections or facet injections Hypertension Home medications continued DVT prevention Sequential compression devices [address] Jul 22, 2017 13:36
[2017-07-22] MEDS ORDERED: PILL SPLITTER OTHER PRN (14:15)
[2017-07-22] MEDS: CYCLOBENZAPRINE HCL 10 MG TAB PO SCH ×2 (15:09→22:32)
[2017-07-22] MEDS: IBUPROFEN 600 MG TAB PO SCH ×2 (15:10→22:32)
[2017-07-22] MEDS: ATENOLOL 50 MG TAB PO SCH (20:27)
[2017-07-22] MEDS: REMOVE OLD PATCH T-DERMAL SCH (20:28)
[2017-07-22] MEDS: PRAVASTATIN SOD 40 MG TAB PO SCH (20:28)
[2017-07-23 00:30] VITALS: BP 105/71; PULSE 71; RESP 18; TEMP 98.9; O2SAT 98
[2017-07-23] MEDS: IBUPROFEN 600 MG TAB PO SCH ×3 (05:43→22:11)
[2017-07-23] MEDS: CYCLOBENZAPRINE HCL 10 MG TAB PO SCH ×3 (05:43→22:11)
[2017-07-23 06:22] LABS: AUTOMATED NEUTROPHIL # 6.9 TH/MM3 (1.8-7.7); BASOPHIL % 0.2 % (0.0-2.0); EOSINOPHIL % 0.1 % (0.0-4.0); HEMOGLOBIN 11.4 GM/DL (11.6-15.3); LYMPH % 10.9 % (9.0-44.0); LYMPHOCYTE # 0.9 TH/MM3 (1.0-4.8); MEAN CORPUSCULAR HEMOGLOBIN 29.5 PG (27.0-34.0); MEAN CORPUSCULAR HGB CONC 31.8 % (32.0-36.0); MEAN PLATELET VOLUME 7.3 FL (7.0-11.0); MONO % 8.2 % (0.0-8.0); MONOCYTE # 0.7 TH/MM3 (0-0.9); NEUT % 80.6 % (16.0-70.0); PLATELET COUNT 197 TH/MM3 (150-450); RED BLOOD COUNT 3.87 MIL/MM3 (4.00-5.30); RED CELL DISTRIBUTION WIDTH 14.4 % (11.6-17.2); WHITE BLOOD COUNT 8.5 TH/MM3 (4.0-11.0)
[2017-07-23 06:26] LABS: CHLORIDE 106 MEQ/L (98-107); SODIUM (NA) 140 MEQ/L (136-145)
[2017-07-23 06:31] LABS: ALBUMIN 3.1 GM/DL (3.4-5.0); BICARBONATE 27.4 MEQ/L (21.0-32.0); BLOOD UREA NITROGEN 26 MG/DL (7-18); CALCIUM 8.8 MG/DL (8.5-10.1); GLUCOSE,RANDOM 100 MG/DL (74-106)
[2017-07-23 06:34] LABS: ALT (GPT) 14 U/L (10-53); AST (GOT) 12 U/L (15-37); CREATININE 0.88 MG/DL (0.50-1.00); GLOMERULAR FILTRATION RATE 61 ML/MIN (>89)
[2017-07-23 06:36] LABS: TOTAL BILIRUBIN ADULT 0.7 MG/DL (0.2-1.0); TOTAL PROTEIN 6.2 GM/DL (6.4-8.2)
[2017-07-23 06:37] LABS: ALKALINE PHOSPHATASE 48 U/L (45-117)
--- NOTE | 2017-07-23 07:31 | HHI.PR ---
Subjective Remarks Patient seen and examined today for follow-up on acute on chronic back pain. Patient states that despite treatment there has been no significant improvement. Awaiting Dr. Tovar to evaluate the patient tomorrow and possible intervention. Vital signs are stable, afebrile. Objective Vitals Vital Signs Date Time Temp Pulse Resp B/P (MAP) Pulse Ox O2 Delivery O2 Flow Rate FiO2 07/23/17 04:21 07/23/17 00:30 98.9 71 18 105/71 (82) 98 07/22/17 20:17 97.9 77 16 118/56 (76) 97 07/22/17 16:19 18 07/22/17 16:00 97.9 71 18 127/60 (82) 95 07/22/17 12:44 18 07/22/17 12:00 97.8 80 18 144/79 (100) 95 07/22/17 12:00 97.8 80 18 144/79 (100) 95 07/22/17 08:00 97.0 65 18 147/67 (93) 98 07/22/17 07:45 07/22/17 07:32 98.6 91 16 156/94 (114) 97 I/O 07/22/17 07/22/17 07/22/17 07/23/17 07/23/17 07/23/17 07:00 15:00 23:00 07:00 15:00 23:00 Intake Total 650 ml Balance 650 ml Intake Oral 650 ml # Voids 2 3 # Bowel Movements 0 0 Result Diagram: 07/23/17 0607 07/23/17 0607 Objective Remarks GENERAL: Well-developed, well-nourished, in no acute distress. alert and orientated HEENT: Head is normocephalic without any lesions or masses noted. Facial features are symmetric. Eyes: Extraocular muscles are intact. Conjunctivae were clear. NECK: Supple without any masses. Trachea midline no deviation. No JVD, CARDIAC: Regular rhythm, regular rate. S1/S2 are heard. No murmurs gallops or rubs. LUNGS: Clear to auscultation bilaterally. No wheeze, rhonchi or rales. No use of accessory muscles on inspiration or expiration. ABDOMEN: Soft, nontender. Nondistended. Bowel sounds heard in all 4 quadrants. No organomegaly or masses. Negative rebound, negative guarding EXTREMITIES: No edema, pulses are equal bilaterally. No cyanosis or clubbing NEUROLOGY: Mood and affect appear appropriate. Cranial nerves II through XII grossly intact. Moving all extremities, speech is clear. Patient appears to have sharp shooting pain whenever she tries to bear weight on her right leg which causes her to sit back down. Urinary Catheter: No Vascular Central Line Catheter: No A/P Assessment and Plan Acute exacerbation of chronic back pain Continue ibuprofen 600 mg 3 times daily, Flexeril 5 mg 3 times daily, Lidoderm patch [place] 5 for pain 6-10, morphine 2 mg IV for breakthrough pain Continue physical therapy Dr. Tovar plans to evaluate the patient tomorrow for possible intervention Obtain x-ray of the lumbar spine and right hip Hypertension Home medications continued DVT prevention Sequential compression devices [address] Jul 23, 2017 07:31
[2017-07-23 08:00] VITALS: BP 151/79; PULSE 65; RESP 18; TEMP 96.8; O2SAT 95
[2017-07-23] MEDS: LIDOCAINE HCL 5% PATCH T-DERMAL SCH (08:17)
[2017-07-23] MEDS: DOCUSATE SODIUM 50 MG/SENNA 8.6 MG TAB PO SCH ×2 (08:17→20:13)
[2017-07-23] MEDS: SODIUM CHLORIDE 0.9% FLUSH 10 ML FLUSH IV FLUSH SCH (08:18)
--- NOTE | 2017-07-23 10:51 | RADRPT ---
EXAM DATE/TIME: 07/23/2017 10:08 [facility] COMPARISON: No previous studies available for comparison. INDICATIONS : Right hip pain. No recent injury. Pain radiates from back and down right leg. MEDICAL HISTORY : None. SURGICAL HISTORY : None. ENCOUNTER: Initial ACUITY: 1 week PAIN SCORE: 5/10 LOCATION: Right hip. FINDINGS: Multiple views of the right hip were obtained as well as an AP view of the pelvis and demonstrate dif fuse osteopenia with no acute fracture or malalignment. The pubic rami are intact. The sacrum appears within normal limits. Postsurgical changes are noted in the lower lumbar spine status post fusion. T here is a stimulator device in place with multiple leads. CONCLUSION: 1. Osteopenia with no acute fracture or malalignment. 2. Postsurgical changes in the lower lumbar spine. Cameron Posada MD on July 23, 2017 at 10:47 Board Certified Radiologist. This report was verified electronically.
--- NOTE | 2017-07-23 10:53 | RADRPT ---
EXAM DATE/TIME: 07/23/2017 10:08 [facility] COMPARISON: No previous studies available for comparison. EXTERNAL COMPARISON : [facility] June 20, 2017 INDICATIONS : Lower back pain that radiates down right leg. No recent injury. MEDICAL HISTORY : None. SURGICAL HISTORY : Fusion, lumbar. Stimulator. ENCOUNTER: Initial ACUITY: 1 week PAIN SCORE: 5/10 LOCATION: lumbar spine. FINDINGS: Multiple views of the lumbar spine were obtained and demonstrate 5 nonrib-bearing lumbar type vertebr a with mild scoliosis. The patient is status post fusion at the L4-5 level with bilateral pedicle scr ews and posterior fixation rods. There is a grade 1 anterior spondylolisthesis of L4 on L5 of approxi mately 7 mm. There are degenerative disc changes in the lower lumbar spine with disc space narrowing. There is moderate osteopenia with no acute fracture. The sacrum appears intact. There is a mild scol iosis. A stimulator device is noted in place with multiple leads. CONCLUSION: 1. Osteopenia with no acute fracture. 2. Status post fusion at the L4-5 level with grade 1 anterospondylolisthesis. 3. Mild scoliosis and degenerative disc change. Cameron Posada MD on July 23, 2017 at 10:49 Board Certified Radiologist. This report was verified electronically.
[2017-07-23 12:00] VITALS: BP 161/74; PULSE 65; RESP 18; TEMP 96.9; O2SAT 98
[2017-07-23 16:00] VITALS: BP 155/65; PULSE 65; RESP 18; TEMP 97.4; O2SAT 98
[2017-07-23] MEDS ORDERED: ONDANSETRON ODT 4 MG TAB PO PRN (18:15)
[2017-07-23 20:00] VITALS: BP 110/58; PULSE 57; RESP 18; TEMP 97.6; O2SAT 94
[2017-07-23] MEDS: ATENOLOL 50 MG TAB PO SCH (20:13)
[2017-07-23] MEDS: PRAVASTATIN SOD 40 MG TAB PO SCH (20:13)
[2017-07-23] MEDS: REMOVE OLD PATCH T-DERMAL SCH (20:14)
[2017-07-24] VITALS: BP 113/57; PULSE 58; RESP 16; TEMP 97.6; O2SAT 95
[2017-07-24] MEDS: IBUPROFEN 600 MG TAB PO SCH (05:36)
[2017-07-24] MEDS: CYCLOBENZAPRINE HCL 10 MG TAB PO SCH (05:36)
--- NOTE | 2017-07-24 07:17 | HHI.PR ---
Subjective Remarks Patient seen and examined today for follow-up on right low back pain with difficulty in standing and ambulating. Patient indicates that Dr. Tovar did come in and see her this morning and notified her that he was planning on doing intervention later this afternoon. She states that she does want to go home. Patient doing well and pain-free as long as she is lying still. Still having pain in her right hip and buttocks whenever she stands. Objective Vitals Vital Signs Date Time Temp Pulse Resp B/P (MAP) Pulse Ox O2 Delivery O2 Flow Rate FiO2 07/24/17 00:00 97.6 58 16 113/57 (75) 95 07/23/17 20:00 97.6 57 18 110/58 (75) 94 07/23/17 16:00 97.4 65 18 155/65 (95) 98 07/23/17 12:00 96.9 65 18 161/74 (103) 98 07/23/17 08:00 96.8 65 18 151/79 (103) 95 I/O 07/23/17 07/23/17 07/23/17 07/24/17 07/24/17 07/24/17 07:00 15:00 23:00 07:00 15:00 23:00 Intake Total 675 ml 450 ml Balance 675 ml 450 ml Intake Oral 675 ml 450 ml # Voids 3 4 2 6 # Bowel Movements 0 0 2 Result Diagram: 07/23/1760607/23/17606 Objective Remarks GENERAL: Well-developed, well-nourished, in no acute distress. alert and orientated HEENT: Head is normocephalic without any lesions or masses noted. Facial features are symmetric. Eyes: Extraocular muscles are intact. Conjunctivae were clear. NECK: Supple without any masses. Trachea midline no deviation. No JVD, CARDIAC: Regular rhythm, regular rate. S1/S2 are heard. No murmurs gallops or rubs. LUNGS: Clear to auscultation bilaterally. No wheeze, rhonchi or rales. No use of accessory muscles on inspiration or expiration. ABDOMEN: Soft, nontender. Nondistended. Bowel sounds heard in all 4 quadrants. No organomegaly or masses. Negative rebound, negative guarding EXTREMITIES: No edema, pulses are equal bilaterally. No cyanosis or clubbing NEUROLOGY: Mood and affect appear appropriate. Cranial nerves II through XII grossly intact. Moving all extremities, speech is clear. Patient appears to have sharp shooting pain whenever she tries to bear weight on her right leg which causes her to sit back down. Urinary Catheter: No Vascular Central Line Catheter: No A/P Assessment and Plan Acute exacerbation of chronic back pain Continue ibuprofen 600 mg 3 times daily, Flexeril 5 mg 3 times daily, Lidoderm patch [place] 5 for pain 6-10, Continue physical therapy Dr. Tovar, per patient evaluated her today and plans for intervention this afternoon X-ray of the lumbar spine and right hip: Does not indicate any acute abnormality Hypertension Home medications continued DVT prevention Sequential compression devices [address] Jul 24, 2017 07:17
[2017-07-24 08:00] VITALS: BP 181/75; PULSE 57; RESP 16; TEMP 96.3; O2SAT 97
[2017-07-24] MEDS: DOCUSATE SODIUM 50 MG/SENNA 8.6 MG TAB PO SCH (09:07)
[2017-07-24] MEDS: LIDOCAINE HCL 5% PATCH T-DERMAL SCH (09:07)
--- NOTE | 2017-07-24 11:06 | HHI.DCPOC ---
Discharge Care Plan Diagnosis: (1) Acute exacerbation of chronic low back pain Goals to Promote Your Health * To prevent worsening of your condition and complications * To maintain your health at the optimal level Directions to Meet Your Goals Take your medications as prescribed Follow your dietary instruction Follow activity as directed Keep your appointments as scheduled Take your immunizations and boosters as scheduled If your symptoms worsen call your PCP, if no PCP go to Urgent Care Center or Emergency Room Smoking is Dangerous to Your Health. Avoid second hand smoke Call the 24-hour hour crisis hotline for domestic abuse at [address] Jul 24, 2017 11:06
[2017-07-24] MEDS ORDERED: CYCL10TA PO (11:07)
--- NOTE | 2017-07-24 11:10 | HHI.DS ---
Discharge Summary Admission Date Jul 22, 2017 at 06:26 Discharge Date: Jul 24, 2017 Admitting Diagnosis Intractable back pain (1) Acute exacerbation of chronic low back pain ICD Code: M54.5 - Low back pain; G89.29 - Other chronic pain Diagnosis: Principal Procedures Facet injection Brief History - From Admission 86-year-old female with known history of hypertension, chronic back pain who originally lives in [place] and is down here in [place] until beginning of August. The patient has presented to the hospital multiple times the last few days, for low back pain and difficulty in ambulating. The patient has chronic back pain usually is treated by her pain doctors in [place]. She indicates that she usually gets injections in her back approximately every 3-4 months. Whenever she gets his injections usually feels the medication flowing down her leg and stopping her pain almost instantaneously. The patient indicates that she started developing pain while she is here in [place] and she went saw Dr. Tovar and had epidural steroid injections performed on 07/13/17. During that injection she did not feel the pain relief that she usually does when she is in [place]. The pain did not have any improvement. She states that the pain is coming from her posterior right hip and radiating to the anterior thigh and anterior narayanan down to mid narayanan. The patient indicates that she was called by Dr. Tovar's office and was told that she needed to come and see him in the office on July 24, 2017. Patient does have previous history of L4 fusion in 2005. She has been to the ER 3 times in the last 3 days and given multiple treatments with pain medication to include Toradol, Dilaudid, Valium, morphine, Solu-Medrol. Unfortunately the treatments has not been successful because the patient came to the emergency department on 07/20, 07/21, and 07/22, because her pain was only relieved for short period time and she is having difficulty ambulating. Because the patient return to the ER 3 days in a row as recommended by the ER physician that the patient be observed in the hospital for further recommendations and management. Unfortunately, there are no pain management physicians on staff at [facility]. We will need to try to contact patient's pain management physician for recommendations. CBC/BMP: 07/23/17 0607 07/23/17 0607 Significant Findings Laboratory Tests Test 07/22/17 05:20 07/23/17 06:07 Neutrophils (%) (Auto) 75.6 % (16.0-70.0) 80.6 % (16.0-70.0) Monocytes (%) (Auto) 9.3 % (0.0-8.0) 8.2 % (0.0-8.0) Random Glucose 109 MG/DL (74-106) Alkaline Phosphatase 44 U/L (45-117) Aspartate Amino Transf (AST/SGOT) 14 U/L (15-37) 12 U/L (15-37) Red Blood Count 3.87 MIL/MM3 (4.00-5.30) Hemoglobin 11.4 GM/DL (11.6-15.3) Mean Corpuscular Hemoglobin Concent 31.8 % (32.0-36.0) Lymphocytes # (Auto) 0.9 TH/MM3 (1.0-4.8) Blood Urea Nitrogen 26 MG/DL (7-18) Total Protein 6.2 GM/DL (6.4-8.2) Albumin 3.1 GM/DL (3.4-5.0) Estimat Glomerular Filtration Rate 61 ML/MIN (>89) PE at Discharge GENERAL: Well-developed, well-nourished, in no acute distress. alert and orientated HEENT: Head is normocephalic without any lesions or masses noted. Facial features are symmetric. Eyes: Extraocular muscles are intact. Conjunctivae were clear. NECK: Supple without any masses. Trachea midline no deviation. No JVD, CARDIAC: Regular rhythm, regular rate. S1/S2 are heard. No murmurs gallops or rubs. LUNGS: Clear to auscultation bilaterally. No wheeze, rhonchi or rales. No use of accessory muscles on inspiration or expiration. ABDOMEN: Soft, nontender. Nondistended. Bowel sounds heard in all 4 quadrants. No organomegaly or masses. Negative rebound, negative guarding EXTREMITIES: No edema, pulses are equal bilaterally. No cyanosis or clubbing NEUROLOGY: Mood and affect appear appropriate. Cranial nerves II through XII grossly intact. Moving all extremities, speech is clear. Patient appears to have sharp shooting pain whenever she tries to bear weight on her right leg which causes her to sit back down. Hospital Course This is a 86-year-old female with known history of chronic back pain who is originally from [place] and is staying here in [place] until the end of this month. Patient usually treated every 3-4 months with epidural steroid injections because of her chronic back pain however she developed back pain down here in [place] and she went to Dr. Tovar who did an epidural steroid injection on 07/13/17. Despite the injection her pain did not improve she continued to have worsening pain is prompted her to come to the emergency department 3 days in a row and subsequently admitted by ER physician because of intractable back pain. Patient was started on Lidoderm patch, Flexeril, [place] for pain control. However patient did not improve. I did contact Dr. Tovar concerning the patient and he indicated that he would be an on Monday morning 07/24/17 and would perform procedure to help with pain control. Patient did undergo facet injection today by Dr. Tovar. Patient returned to the room and is feeling fantastic. She is very eager to go home. She indicated that Dr. barry dudley recommended that she stay in the hospital for a couple more hours prior to going home. We will plan discharge accordingly. Patient should follow -up with primary medical doctor as well as Dr. Tovar for short-term follow- up. Pt Condition on Discharge: Stable Discharge Disposition: Discharge Home Discharge Time: > 30 minutes Discharge Instructions DIET: Follow Instructions for: As Tolerated, No Restrictions Activities you can perform: Regular-No Restrictions Follow up Referrals: Pain Management - 2 Weeks with Boaz Tovar MD PCP Follow-up - 1 Week New Medications: Cyclobenzaprine (Flexeril) 10 Mg Tab 5 MG PO Q8HR for Pain Management for 10 Days, TAB Continued Medications: Atenolol (Atenolol) 100 Mg Tab 100 MG PO HS for Blood Pressure Management, #30 TAB 0 Refills Hydrocodone-Acetaminophen ([place]) 5 Mg-325 Mg Tab 1-2 TAB PO Q4H PRN for PAIN, #20 TAB 0 Refills Lisinopril-Hctz (Lisinopril-Hctz) 10-12.5 Mg Tab 1 TAB PO DAILY for Blood Pressure Management, #30 TAB 0 Refills Simvastatin (Zocor) 40 Mg Tab 40 MG PO HS for Cholesterol Management, #30 TAB [address] Jul 24, 2017 11:10
== END 2017-07-24 13:05 | disposition home or self-care (01) ==
LOC: PHED 04:53 → PHEDA 06:26 → PH3A 07:57
PROVIDERS: ADMIT Hospitalist; ATTEND Hospitalist
DX: M54.40 Lumbago with sciatica, unspecified side (principal); I10 Essential (primary) hypertension; M43.26 Fusion of spine, lumbar region; Z87.891 Personal history of nicotine dependence; Z79.899 Other long term (current) drug therapy; M51.36 Other intervertebral disc degeneration, lumbar region; M48.061 Spinal stenosis, lumbar region without neurogenic claudication; R26.2 Difficulty in walking, not elsewhere classified; G89.29 Other chronic pain; M85.88 Other specified disorders of bone density and structure, other site; M41.9 Scoliosis, unspecified
CPT/HCPCS: 64493; 64494; 72110; 73502; 80053; 85025; 96374; 96375; 97110; 97116; 97162; 99285; G0378; G8987; G8988; J1030; J1170; J1885; J2270; J2405; J2930; J3301